=== PATIENT | female | born 1975 | race African-American/Black ===

== ENCOUNTER 2016-08-03 11:46 | Emergency (ER) | payer MEDICAID ==
[~2016-08-03] VITALS: Ht 160 cm; Wt 118.0 kg
[~2016-08-03 11:46] MED LIST: LISI-363 PO; MECL-62 PO
[2016-08-03 11:48] VITALS: BP 132/79; PULSE 99; RESP 20; TEMP 98.4; O2SAT 99
--- NOTE | 2016-08-03 12:38 | PD ---
HPI Chief Complaint: Chest Pain Time Seen by Provider: 12:36 Travel History International Travel<30 days: No Contact w/Intl Traveler<30days: No Traveled to known affect area: No History of Present Illness HPI 40-year-old female with a history of hypertension and asthma presents to the emergency department for evaluation of chest pain. Patient states that she's had intermittent sharp chest pain underneath her left breast for the past 3 days. States that she's noticed the pain is present when she is sitting still and she has less pain when moving. She states that this morning she is now having pain both under her left breast and her right breast. States that the pain is associated with mild shortness of breath. She states that this morning she also had some nasal congestion and postnasal drip. Denies any fever, chills , cough, swelling of the extremities, lightheadedness, dizziness, nausea, vomiting, abdominal pain. Denies any history of GA or stents. Denies any smoking history. Last stress test was [address] Cole. [facility] Past Medical History Hx Anticoagulant Therapy: No Heart Rhythm Problems: No Cardiac Catheterization: No Cardiovascular Problems: No High Cholesterol: Yes Chemotherapy: No Congestive Heart Failure: No Cerebrovascular Accident: No Diabetes: No Diminished Hearing: No Hypertension: Yes Respiratory: Yes (ASTHMA) LMP: 07/13/16 Menopausal: No : 2 Para: 2 Tubal Ligation: Yes Past Surgical History Section: Yes (X1) Coronary Artery Bypass Graft: No Hysterectomy: No Social History Alcohol Use: Yes (occasional) Tobacco Use: No Substance Use: No Allergies-Medications (Allergen,Severity, Reaction): Coded Allergies: No Known Allergies (Verified , 08/11/15) Reported Meds & Prescriptions Reported Meds & Active Scripts Active Meclizine Hcl (Meclizine HCl) 25 Mg Tab 25 Mg PO TID PRN Lisinopril 20 mg (Lisinopril) 20 Mg Tab 1 Tab PO DAILY Review of Systems Except as stated in HPI: all other systems reviewed are Neg Physical Exam Narrative GENERAL: Well-nourished and well-developed pleasant female patient in no acute distress who is nontoxic appearing. SKIN: Warm and dry. HEAD: Normocephalic and atraumatic. EYES: No injection, drainage, or hyphema noted. PERRLA. EOMI. ENT: No nasal drainage noted. Oropharynx is clear. NECK: Supple and the trachea is midline. CARDIOVASCULAR: Regular rate and rhythm. RESPIRATORY: Breath sounds are equal bilaterally with no accessory muscle use, wheezing, rhonchi, or crackles. GASTROINTESTINAL: Abdomen is soft, non-tender, and nondistended. MUSCULOSKELETAL: No obvious deformities, swelling, cyanosis, or ecchymosis is present throughout the upper and lower extremities. Patient has full range of motion without any signs of neurovascular compromise. NEUROLOGICAL: Awake, alert, and oriented. Normal speech and gait. Cranial nerves are grossly intact. Data Data Last Documented VS Vital Signs Date Time Temp Pulse Resp B/P Pulse Ox O2 Delivery O2 Flow Rate FiO2 08/03/16 12:48 97 Room Air 08/03/16 11:48 98.4 99 20 132/79 Orders Electrocardiogram (08/03/16 ) Ckmb (Isoenzyme) Profile (08/03/16 12:34) Complete Blood Count With Diff (08/03/16 12:34) Comprehensive Metabolic Panel (08/03/16 12:34) D-Dimer (08/03/16 12:34) Prothrombin Time / Inr (Pt) (08/03/16 12:34) Act Partial Throm Time (Ptt) (08/03/16 12:34) Troponin I (08/03/16 12:34) Chest, Single Ap (08/03/16 12:34) Ecg Monitoring (08/03/16 12:34) Bilateral Bp Monitoring (08/03/16 12:34) Iv Access Insert/Monitor (08/03/16 12:34) Oximetry (08/03/16 12:34) Aspirin Chew (Aspirin Chew) (08/03/16 12:45) Sodium Chloride 0.9% Flush (Ns Flush) (08/03/16 12:45) Ed Urine Pregnancytest Poc (08/03/16 12:34) CKMB (08/03/16 12:45) CKMB% (08/03/16 12:45) Labs Laboratory Tests Test 08/03/16 12:45 White Blood Count 10.4 TH/MM3 Red Blood Count 4.91 MIL/MM3 Hemoglobin 13.4 GM/DL Hematocrit 40.4 % Mean Corpuscular Volume 82.4 FL Mean Corpuscular Hemoglobin 27.3 PG Mean Corpuscular Hemoglobin 33.1 % Concent Red Cell Distribution Width 13.6 % Platelet Count 204 TH/MM3 Mean Platelet Volume 9.8 FL Neutrophils (%) (Auto) 64.5 % Lymphocytes (%) (Auto) 27.9 % Monocytes (%) (Auto) 3.9 % Eosinophils (%) (Auto) 3.1 % Basophils (%) (Auto) 0.6 % Neutrophils # (Auto) 6.7 TH/MM3 Lymphocytes # (Auto) 2.9 TH/MM3 Monocytes # (Auto) 0.4 TH/MM3 Eosinophils # (Auto) 0.3 TH/MM3 Basophils # (Auto) 0.1 TH/MM3 CBC Comment DIFF FINAL Differential Comment Prothrombin Time 10.2 SEC Prothromb Time International 0.9 RATIO Ratio Activated Partial 25.9 SEC Thromboplast Time D-Dimer Quantitative (PE/DVT) 0.50 MG/L FEU Sodium Level 139 MEQ/L Potassium Level 4.1 MEQ/L Chloride Level 102 MEQ/L Carbon Dioxide Level 27.8 MEQ/L Anion Gap 9 MEQ/L Blood Urea Nitrogen 12 MG/DL Creatinine 1.00 MG/DL Estimat Glomerular Filtration 74 ML/MIN Rate Random Glucose 124 MG/DL Calcium Level 8.8 MG/DL Total Bilirubin 0.3 MG/DL Aspartate Amino Transf 35 U/L (AST/SGOT) Alanine Aminotransferase 46 U/L (ALT/SGPT) Alkaline Phosphatase 54 U/L Total Creatine Kinase 254 U/L Creatine Kinase MB 1.4 NG/ML Creatine Kinase MB % 0.6 % Troponin I 0.02 NG/ML Total Protein 7.6 GM/DL Albumin 3.5 GM/DL [facility] Medical Decision Making Medical Screen Exam Complete: Yes Emergency Medical Condition: Yes Differential Diagnosis Pleurisy versus ACS versus chest wall pain versus bronchitis versus PE Narrative Course 40-year-old female presents to the emergency department for evaluation of chest pain intermittently for 3 days. Patient is afebrile. She is slightly tachycardic but otherwise vital signs are unremarkable. EKG shows sinus tachycardia with a ventricular rate of 105 bpm, no acute ST elevations or depressions. IV access is obtained, labs are been drawn and sent. Patient is placed on cardiac telemetry and pulse oximetry monitoring. She is administered aspirin 324 mg orally. Chest x-ray is unremarkable. CBC is unremarkable. CMP is unremarkable. CPK slightly elevated at 254. Troponin is 0.02 Coags are unremarkable. D-dimer is negative. Patient has remained stable without complaint while here in the emergency department. Patient states that she has developed more of a cough since she has been here. I discussed with the patient and recommended admission to chest pain center for repeat cardiac enzymes, EKGs and possible stress testing. Patient however he elects to be discharged to home and follow-up as an outpatient with her PCP. I discussed signs and symptoms of when to return to the emergency department. Patient verbalizes understanding and agreement with treatment plan. I discussed the case with my attending physician Dr. Henry who is aware of the patients history, physical examination findings, and treatment plan. Diagnosis Primary Impression: Atypical chest pain Referrals: Primary Care Physician Patient Instructions: Chest Pain (ED), General Instructions, Pleurisy (ED) Additional Instructions: We gave you the option of staying overnight in the chest pain center and you elected to be discharged to home. If you develop any worsening of symptoms please return to the emergency department at any time. Follow-up with your Primary Care Physician. Med/Other Pt SpecificInfo: No Change to Meds Disposition: 01 DISCHARGE HOME Condition: Stable Kitty Wilkes Aug 03, 2016 12:38
[2016-08-03] MEDS ORDERED: SODIUM CHLORIDE 0.9% FLUSH 10 ML FLUSH IVF PRN (12:45)
[2016-08-03] MEDS ORDERED: ASPIRIN 81 MG CHEW TAB PO ONE (12:45)
[2016-08-03 12:48] VITALS: O2SAT 97
[2016-08-03 13:01] LABS: AUTOMATED NEUTROPHIL # 6.7 TH/MM3 (1.8-7.7); BASOPHIL # 0.1 TH/MM3 (0-0.2); BASOPHIL % 0.6 % (0.0-2.0); EOSINOPHIL # 0.3 TH/MM3 (0-0.4); EOSINOPHIL % 3.1 % (0.0-4.0); HEMATOCRIT 40.4 % (35.0-46.0); HEMO FLAGS DIFF FINAL; LYMPH % 27.9 % (9.0-44.0); LYMPHOCYTE # 2.9 TH/MM3 (1.0-4.8); MEAN CELL VOLUME 82.4 FL (80.0-100.0); MEAN CORPUSCULAR HEMOGLOBIN 27.3 PG (27.0-34.0); MEAN CORPUSCULAR HGB CONC 33.1 % (32.0-36.0); MONO % 3.9 % (0.0-8.0); NEUT % 64.5 % (16.0-70.0); PLATELET COUNT 204 TH/MM3 (150-450); RED BLOOD COUNT 4.91 MIL/MM3 (4.00-5.30); RED CELL DISTRIBUTION WIDTH 13.6 % (11.6-17.2); WHITE BLOOD COUNT 10.4 TH/MM3 (4.0-11.0)
--- NOTE | 2016-08-03 13:08 | RADRPT ---
EXAM DATE/TIME: 08/03/2016 12:39 [facility] COMPARISON: CHEST SINGLE AP, February 10, 2015, 7:40. INDICATIONS : Chest pain for 2 or 3 days, pain under breasts, no shortness of breath at this time MEDICAL HISTORY : None. SURGICAL HISTORY : None. ENCOUNTER: Initial ACUITY: 3 days PAIN SCORE: 6/10 LOCATION: Bilateral chest FINDINGS: A single view of the chest demonstrates the lungs to be symmetrically aerated without evidence of mas s, infiltrate or effusion. The cardiomediastinal contours are unremarkable. Osseous structures are intact. CONCLUSION: No acute disease. Osvaldo Ny MD FACR on August 03, 2016 at 13:05 Board Certified Radiologist. This report was verified electronically.
[2016-08-03 13:16] LABS: ALT (GPT) 46 U/L (10-53)
[2016-08-03 13:23] LABS: APTT (PATIENT) 25.9 SEC (24.3-30.1); INTERNATIONAL NORMALIZED RATIO 0.9 RATIO; PROTHROMBIN TIME - PATIENT 10.2 SEC (9.8-11.6)
[2016-08-03 13:24] LABS: ALKALINE PHOSPHATASE 54 U/L (45-117); ANION GAP 9 MEQ/L (5-15); BICARBONATE 27.8 MEQ/L (21.0-32.0); BLOOD UREA NITROGEN 12 MG/DL (7-18); CHLORIDE 102 MEQ/L (98-107); CREATINE KINASE 254 U/L (26-192); GLOMERULAR FILTRATION RATE 74 ML/MIN (>89); SODIUM (NA) 139 MEQ/L (136-145); TOTAL BILIRUBIN ADULT 0.3 MG/DL (0.2-1.0)
[2016-08-03 13:25] LABS: AST (GOT) 35 U/L (15-37); POTASSIUM 4.1 MEQ/L (3.5-5.1)
[2016-08-03 13:38] LABS: CKMB 1.4 NG/ML (0.5-3.6)
--- NOTE | 2016-08-03 15:13 | EKG ---
Date Performed: 08/03/2016 Time Performed: 12:06:29 PTAGE: 40 years EKG: SINUS TACHYCARDIA MINIMAL ST DEPRESSION ABNORMAL RHYTHM ECG COMPARED TO PRIOR ELECTROCARDIO GRAM, rate has increased PREVIOUS TRACING : 02/10/2015 10.50 DOCTOR: Yaakov Barger Interpretating Date/Time 08/03/2016 15:12:18
== END 2016-08-03 14:06 | disposition home or self-care (01) ==
LOC: NEPE 11:46
DX: R07.89 Other chest pain (principal); R00.0 Tachycardia, unspecified
CPT/HCPCS: 71010; 80053; 82550; 82552; 84484; 84703; 85025; 85379; 85610; 85730; 93005; 99285

== ENCOUNTER 2016-08-21 10:18 | Emergency (ER) | payer MEDICAID ==
[~2016-08-21] VITALS: Ht 160 cm; Wt 120.0 kg
[2016-08-21 10:21] VITALS: BP 113/54; PULSE 93; RESP 16; TEMP 98.6; O2SAT 97
--- NOTE | 2016-08-21 10:43 | PD ---
HPI Chief Complaint: Pain: Acute or Chronic Time Seen by Provider: 10:34 Travel History International Travel<30 days: No Contact w/Intl Traveler<30days: No Traveled to known affect area: No History of Present Illness HPI 40-year-old female here with complaint of right leg pain and redness. 2 days ago in the right distal calf patient began to notice a slight amount of swelling , redness and pain. This has been present ever since and has not improved. She denies any open sores, lesions. She has not had any fevers, chills. No recent travel. She denies any history of DVT, PE. No associated shortness of breath but patient does state that she had some chest pain several weeks ago. She was seen here on 08/03 with a sharp inframammary chest pain that was worse with movement. Laboratory workup including d-dimer at that time was negative. Patient states that the pain in the interim has resolved. PFSH Past Medical History Hx Anticoagulant Therapy: No Heart Rhythm Problems: No Cardiac Catheterization: No Cardiovascular Problems: Yes (HTN) High Cholesterol: Yes Chemotherapy: No Congestive Heart Failure: No Cerebrovascular Accident: No Diabetes: No Diminished Hearing: No Hypertension: Yes Respiratory: Yes (ASTHMA) ?: Not Menopausal: No : 2 Para: 2 Tubal Ligation: Yes Past Surgical History Section: Yes (X1) Coronary Artery Bypass Graft: No Hysterectomy: No Social History Alcohol Use: No Tobacco Use: No Substance Use: No Allergies-Medications (Allergen,Severity, Reaction): Coded Allergies: No Known Allergies (Verified , 08/11/15) Reported Meds & Prescriptions Reported Meds & Active Scripts Active Reported Excedrin Extra Strength (Jghqdoo-Lnjyveowvckll-Wbbiofwl) 1 Tab Tab Tylenol Extra Strength (Acetaminophen) 500 Mg Tablet Ventolin Hfa 18 GM Inh (Albuterol Sulfate) 90 Mcg/Act Aer 1 Puff INH Q4H PRN Lisinopril 20 Mg Tab 20 Mg PO DAILY Review of Systems Except as stated in HPI: all other systems reviewed are Neg Physical Exam Narrative GENERAL: Obese female in no acute distress SKIN: Focused skin assessment warm/dry. HEAD: Normocephalic. EYES: No scleral icterus. No injection or drainage. ENT: Mucous membranes pink and moist. NECK: Supple CARDIOVASCULAR: Regular rate and rhythm. No murmur appreciated. RESPIRATORY: No accessory muscle use. Clear to auscultation. Breath sounds equal bilaterally. GASTROINTESTINAL: Obese MUSCULOSKELETAL: Right distal calf with erythema, warmth and minimal edema. Full pain-free range of motion. There is no evidence of open lesions, palpable cords or fullness in the popliteal fossa. NEUROLOGICAL: Awake and alert. Normal speech. PSYCHIATRIC: Appropriate mood and affect; insight and judgment normal. Data Data Last Documented VS Vital Signs Date Time Temp Pulse Resp B/P Pulse Ox O2 Delivery O2 Flow Rate FiO2 08/21/16 10:21 98.6 93 16 113/54 97 Orders Basic Metabolic Panel (Bmp) (08/21/16 10:38) Complete Blood Count With Diff (08/21/16 10:38) Prothrombin Time / Inr (Pt) (08/21/16 10:38) Act Partial Throm Time (Ptt) (08/21/16 10:38) Iv Access Insert/Monitor (08/21/16 10:38) Sodium Chloride 0.9% Flush (Ns Flush) (08/21/16 10:45) Us Leg Venous Doppler (08/21/16 ) Acetaminophen (Tylenol) (08/21/16 11:15) Labs Laboratory Tests Test 08/21/16 10:55 White Blood Count 11.1 TH/MM3 Red Blood Count 5.19 MIL/MM3 Hemoglobin 14.2 GM/DL Hematocrit 42.7 % Mean Corpuscular Volume 82.3 FL Mean Corpuscular Hemoglobin 27.3 PG Mean Corpuscular Hemoglobin 33.2 % Concent Red Cell Distribution Width 13.9 % Platelet Count 176 TH/MM3 Mean Platelet Volume 9.8 FL Neutrophils (%) (Auto) 65.0 % Lymphocytes (%) (Auto) 26.0 % Monocytes (%) (Auto) 6.2 % Eosinophils (%) (Auto) 2.3 % Basophils (%) (Auto) 0.5 % Neutrophils # (Auto) 7.2 TH/MM3 Lymphocytes # (Auto) 2.9 TH/MM3 Monocytes # (Auto) 0.7 TH/MM3 Eosinophils # (Auto) 0.3 TH/MM3 Basophils # (Auto) 0.1 TH/MM3 CBC Comment DIFF FINAL Differential Comment Prothrombin Time 10.6 SEC Prothromb Time International 1.0 RATIO Ratio Activated Partial 27.3 SEC Thromboplast Time Sodium Level 135 MEQ/L Potassium Level 4.5 MEQ/L Chloride Level 99 MEQ/L Carbon Dioxide Level 28.7 MEQ/L Anion Gap 7 MEQ/L Blood Urea Nitrogen 12 MG/DL Creatinine 1.51 MG/DL Estimat Glomerular Filtration 46 ML/MIN Rate Random Glucose 111 MG/DL Calcium Level 9.9 MG/DL [facility] Medical Decision Making Medical Screen Exam Complete: Yes Emergency Medical Condition: Yes Medical Record Reviewed: Yes Differential Diagnosis 40-year-old obese female here with 2 days of right leg pain and swelling. Exam is consistent with cellulitis, differential includes DVT, Jefferson cyst. Several weeks ago she did have some pleuritic chest pain but that has resolved in the interim and she is asymptomatic without chest pain or shortness of breath today. Narrative Course Patient placed on monitor, IV established and blood obtained. CBC, BMP, coags unremarkable. Duplex ultrasound of right lower extremity showed no evidence of DVT. We'll discharge to home with antibiotics for cellulitis Diagnosis Primary Impression: Cellulitis, leg Qualified Code: L03.115 - Cellulitis of right lower extremity Referrals: Primary Care Physician call for appointment Additional Instructions: Finish antibiotics as prescribed. Follow-up with primary care provider as needed. Med/Other Pt SpecificInfo: Prescription(s) given Scripts Cephalexin (Keflex)500 Mg [id number] Mg PO QID 7 Days Ref 0 Prov:Eveline Colbert MD 08/21/16 Disposition: 01 DISCHARGE HOME Condition: Stable Eveline Colbert MD Aug 21, 2016 10:43
[2016-08-21] MEDS ORDERED: SODIUM CHLORIDE 0.9% FLUSH 10 ML FLUSH IVF PRN (10:45)
[2016-08-21] MEDS ORDERED: ACETAMINOPHEN 500 MG CPLT PO ONE (11:15)
--- NOTE | 2016-08-21 11:22 | RADRPT ---
EXAM DATE/TIME: 08/21/2016 10:55 [facility] COMPARISON: No previous studies available for comparison. INDICATIONS : Right leg pain and swelling. MEDICAL HISTORY : Hypercholesterolemia. Hypertension. SURGICAL HISTORY : Tubal ligation. ENCOUNTER: Initial ACUITY: 2 day PAIN SCORE: 10/10 LOCATION: Right leg. TECHNIQUE: Venous ultrasound of the leg was performed from the inguinal ligament to the proximal calf. Real-sara e, color Doppler and spectral tracing, compression and augmentation techniques were used. FINDINGS: There is normal compressibility of the deep venous system from the inguinal region to the proximal ca lf. No echogenic clot is seen in the lumen of the common femoral, femoral, popliteal, and posterior tibial veins. There is a normal response of the venous system to proximal and distal augmentation an d respiration. CONCLUSION: No evidence of deep venous thrombosis within the right lower extremity. Abundio Vickers MD on August 21, 2016 at 11:20 Board Certified Radiologist. This report was verified electronically.
[2016-08-21 11:28] LABS: AUTOMATED NEUTROPHIL # 7.2 TH/MM3 (1.8-7.7); BASOPHIL # 0.1 TH/MM3 (0-0.2); BASOPHIL % 0.5 % (0.0-2.0); EOSINOPHIL # 0.3 TH/MM3 (0-0.4); EOSINOPHIL % 2.3 % (0.0-4.0); HEMATOCRIT 42.7 % (35.0-46.0); HEMO FLAGS DIFF FINAL; LYMPHOCYTE # 2.9 TH/MM3 (1.0-4.8); MEAN CELL VOLUME 82.3 FL (80.0-100.0); MEAN CORPUSCULAR HEMOGLOBIN 27.3 PG (27.0-34.0); MEAN CORPUSCULAR HGB CONC 33.2 % (32.0-36.0); MONO % 6.2 % (0.0-8.0); PLATELET COUNT 176 TH/MM3 (150-450); RED BLOOD COUNT 5.19 MIL/MM3 (4.00-5.30); RED CELL DISTRIBUTION WIDTH 13.9 % (11.6-17.2); WHITE BLOOD COUNT 11.1 TH/MM3 (4.0-11.0)
[2016-08-21 11:41] LABS: APTT (PATIENT) 27.3 SEC (24.3-30.1); PROTHROMBIN TIME - PATIENT 10.6 SEC (9.8-11.6)
[2016-08-21] MEDS ORDERED: VENTAER INH (11:46)
[2016-08-21] MEDS ORDERED: ACET-822 (11:46)
[2016-08-21] MEDS ORDERED: ASPI1TAB93 (11:46)
[2016-08-21] MEDS ORDERED: LISI-515 PO (11:46)
[2016-08-21 11:56] LABS: BICARBONATE 28.7 MEQ/L (21.0-32.0); POTASSIUM 4.5 MEQ/L (3.5-5.1)
[2016-08-21] MEDS ORDERED: CEPH-460 PO (11:59)
== END 2016-08-21 12:23 | disposition home or self-care (01) ==
LOC: NEPD 10:18
DX: L03.115 Cellulitis of right lower limb (principal); E66.9 Obesity, unspecified; R07.89 Other chest pain; I10 Essential (primary) hypertension; E78.00 Pure hypercholesterolemia, unspecified; J45.909 Unspecified asthma, uncomplicated; Z79.899 Other long term (current) drug therapy; Z79.82 Long term (current) use of aspirin
CPT/HCPCS: 80048; 85025; 85610; 85730; 93971

== ENCOUNTER 2017-04-23 11:32 | Emergency (ER) | payer MEDICAID ==
[~2017-04-23] VITALS: Ht 160 cm; Wt 122.5 kg
[~2017-04-23 11:32] MED LIST changes: +ACET-822; +ASPI1TAB93; +CEPH-460 PO; -LISI-363 PO; +LISI-515 PO; -MECL-62 PO; +VENTAER INH
[2017-04-23 11:34] VITALS: BP 165/89; PULSE 88; RESP 20; TEMP 98; O2SAT 98
[2017-04-23 12:09] LABS: AUTOMATED NEUTROPHIL # 15.1 TH/MM3 (1.8-7.7); BASOPHIL % 0.1 % (0.0-2.0); HEMATOCRIT 40.8 % (35.0-46.0); HEMOGLOBIN 13.6 GM/DL (11.6-15.3); LYMPH % 11.1 % (9.0-44.0); LYMPHOCYTE # 1.9 TH/MM3 (1.0-4.8); MEAN CELL VOLUME 83.7 FL (80.0-100.0); MEAN CORPUSCULAR HEMOGLOBIN 27.9 PG (27.0-34.0); MEAN CORPUSCULAR HGB CONC 33.3 % (32.0-36.0); MEAN PLATELET VOLUME 9.6 FL (7.0-11.0); MONO % 1.4 % (0.0-8.0); MONOCYTE # 0.2 TH/MM3 (0-0.9); NEUT % 87.4 % (16.0-70.0); PLATELET COUNT 212 TH/MM3 (150-450); RED BLOOD COUNT 4.87 MIL/MM3 (4.00-5.30); RED CELL DISTRIBUTION WIDTH 13.9 % (11.6-17.2); WHITE BLOOD COUNT 17.3 TH/MM3 (4.0-11.0)
[2017-04-23 12:23] LABS: BICARBONATE 25.7 MEQ/L (21.0-32.0); BLOOD UREA NITROGEN 11 MG/DL (7-18); CALCIUM 9.8 MG/DL (8.5-10.1); CHLORIDE 104 MEQ/L (98-107); CREATININE 0.86 MG/DL (0.50-1.00); GLOMERULAR FILTRATION RATE 88 ML/MIN (>89); GLUCOSE,RANDOM 121 MG/DL (74-106); SODIUM (NA) 140 MEQ/L (136-145)
[2017-04-23 12:27] LABS: TROPONIN I LESS THAN 0.02 NG/ML (0.02-0.05)
--- NOTE | 2017-04-23 14:35 | PD ---
HPI . Shortness of breath and "my heart hurts" Chief Complaint: Respiratory Symptoms Time Seen by Provider: 14:22 Travel History International Travel<30 days: No Contact w/Intl Traveler<30days: No Traveled to known affect area: No History of Present Illness HPI This patient presents with a chief complaint of dyspnea on exertion and chest pain which started yesterday. The chest pain is rated 5/10 with no modifying factors. It has been present since yesterday. Patient has admittedly been seen at an outside facility for this. We are attempting to obtain those records. PFSH Past Medical History Hx Anticoagulant Therapy: No Asthma: Yes Heart Rhythm Problems: No Cardiac Catheterization: No Cardiovascular Problems: Yes (HTN) High Cholesterol: Yes Chemotherapy: No Congestive Heart Failure: No Cerebrovascular Accident: No Diabetes: No Diminished Hearing: No Hypertension: Yes Respiratory: Yes (ASTHMA) ?: Not LMP: 04/23/17 Menopausal: No : 2 Para: 2 Tubal Ligation: Yes Past Surgical History Section: Yes (X1) Coronary Artery Bypass Graft: No Hysterectomy: No Social History Alcohol Use: No Tobacco Use: No Substance Use: No Allergies-Medications (Allergen,Severity, Reaction): Coded Allergies: No Known Allergies (Verified , 08/11/15) Reported Meds & Prescriptions Reported Meds & Active Scripts Active Reported Excedrin Extra Strength (Wutdxna-Xmchomtmvocja-Hszoiosa) 1 Tab Tab Tylenol Extra Strength (Acetaminophen) 500 Mg Tablet Ventolin Hfa 18 GM Inh (Albuterol Sulfate) 90 Mcg/Act Aer 1 Puff INH Q4H PRN Lisinopril 20 Mg Tab 20 Mg PO DAILY Review of Systems Except as stated in HPI: all other systems reviewed are Neg Cardiovascular: Positive: Chest Pain or Discomfort Respiratory: Positive: Shortness of Breath Gastrointestinal: No: Nausea, Vomiting, Diarrhea, Abdominal Pain, Loss of Appetite Physical Exam Narrative GENERAL: Patient was actively eating a lunch of all and drinking a monster drink when I went in to see her. SKIN: warm/dry. Normal color and turgor. HEAD: Normocephalic. Atraumatic. EYES: Pupils equal and round. No scleral icterus. No injection or drainage. ENT: No nasal bleeding or discharge. Mucous membranes pink and moist. NECK: Trachea midline. Full range of motion without pain.. CARDIOVASCULAR: Regular rate and rhythm. Heart sounds are normal. RESPIRATORY: No accessory muscle use. Clear to auscultation. Breath sounds equal bilaterally. GASTROINTESTINAL: Abdomen soft. Nontender. Bowel sounds present. Nondistended. MUSCULOSKELETAL: No obvious deformities. NEUROLOGICAL: Awake and alert. No obvious cranial nerve deficits. Motor grossly within normal limits. Normal speech. PSYCHIATRIC: Appropriate mood and affect; insight and judgment normal. Data Data Last Documented VS Vital Signs Date Time Temp Pulse Resp B/P (MAP) Pulse Ox O2 Delivery O2 Flow Rate FiO2 04/23/17 14:30 92 18 98 Room Air 04/23/17 11:34 98.0 165/89 (114) Orders Orders Electrocardiogram (04/23/17 11:37) Complete Blood Count With Diff (04/23/17 11:37) Basic Metabolic Panel (Bmp) (04/23/17 11:37) Ckmb (Isoenzyme) Profile (04/23/17 11:37) Troponin I (04/23/17 11:37) CKMB (04/23/17 11:45) CKMB% (04/23/17 11:45) Labs Laboratory Tests Test 04/23/17 11:45 White Blood Count 17.3 TH/MM3 Red Blood Count 4.87 MIL/MM3 Hemoglobin 13.6 GM/DL Hematocrit 40.8 % Mean Corpuscular Volume 83.7 FL Mean Corpuscular Hemoglobin 27.9 PG Mean Corpuscular Hemoglobin Concent 33.3 % Red Cell Distribution Width 13.9 % Platelet Count 212 TH/MM3 Mean Platelet Volume 9.6 FL Neutrophils (%) (Auto) 87.4 % Lymphocytes (%) (Auto) 11.1 % Monocytes (%) (Auto) 1.4 % Eosinophils (%) (Auto) 0.0 % Basophils (%) (Auto) 0.1 % Neutrophils # (Auto) 15.1 TH/MM3 Lymphocytes # (Auto) 1.9 TH/MM3 Monocytes # (Auto) 0.2 TH/MM3 Eosinophils # (Auto) 0.0 TH/MM3 Basophils # (Auto) 0.0 TH/MM3 CBC Comment DIFF FINAL Differential Comment Blood Urea Nitrogen 11 MG/DL Creatinine 0.86 MG/DL Random Glucose 121 MG/DL Calcium Level 9.8 MG/DL Sodium Level 140 MEQ/L Potassium Level 4.3 MEQ/L Chloride Level 104 MEQ/L Carbon Dioxide Level 25.7 MEQ/L Anion Gap 10 MEQ/L Estimat Glomerular Filtration Rate 88 ML/MIN Total Creatine Kinase 205 U/L Creatine Kinase MB 2.8 NG/ML Creatine Kinase MB % 1.4 % Troponin I LESS THAN 0.02 NG/ML MDM Medical Decision Making Medical Screen Exam Complete: Yes Emergency Medical Condition: Yes Medical Record Reviewed: Yes (patient has been seen here in the past with chest pain. She also has a history of hypertension and asthma.) Interpretation(s) EKG shows a normal sinus rhythm with no acute ischemic changes Differential Diagnosis Differential diagnosis of chest pain includes but is not limited to musculoskeletal pain, pulmonary embolism, acute coronary syndrome, pneumonia, pleurisy Narrative Course Patient presents complaining with chest pain or shortness of breath. Symptoms have been present for 24 hours. Patient has been previously evaluated at an outside hospital within the last 24 hours for this. We are attempting to obtain those records. In the meantime, the patient does not appear to be in any distress at all. She is actively eating and drinking. As she has had symptoms for over 24 hours, if her lab work is normal, she will be stable for discharge to home as she will have "ruled out" for ACS. The patient was here in July with similar symptoms. She was offered an admission to the chest pain center but declined. CBC & BMP Diagram 04/23/17 11:45 Calcium Level 9.8 Troponin < 0.02, CKMB 2.8 CXR patient left before the chest x-ray could be done Diagnosis Primary Impression: Chest pain Qualified Codes: R07.9 - Chest pain, unspecified Additional Impression: Dyspnea Qualified Codes: R06.09 - Other forms of dyspnea Patient Instructions: Chest Pain (DC), Dyspnea (DC), General Instructions Disposition: 07 AGAINST MEDICAL ADVICE Condition: Stable Brianna Giraldo MD Apr 23, 2017 14:35
--- NOTE | 2017-04-24 10:11 | EKG ---
Date Performed: 04/23/2017 Time Performed: 11:40:40 PTAGE: 41 years EKG: Sinus rhythm NORMAL ECG PREVIOUS TRACING : 08/03/2016 12.06 DOCTOR: Aris Arguello Interpretating Date/Time 04/24/2017 10:09:00
== END 2017-04-23 15:15 | disposition left against medical advice (07) ==
LOC: NEPE 11:32
DX: R07.9 Chest pain, unspecified (principal); R06.09 Other forms of dyspnea; J45.909 Unspecified asthma, uncomplicated; E78.00 Pure hypercholesterolemia, unspecified; I10 Essential (primary) hypertension
CPT/HCPCS: 80048; 82550; 82552; 84484; 85025; 93005; 99284